=== PATIENT | female | born 2000 | race African-American/Black ===

== ENCOUNTER 2022-01-11 19:01 | Emergency (ER) | payer OTHER ==
[~2022-01-11] VITALS: Ht 157.5 cm; Wt 63.5 kg
[2022-01-11 20:01] LABS: PLATELET COUNT 230 K/uL (152-353)
[2022-01-11 20:04] LABS: POTASSIUM 3.4 mmol/L (3.6-5.2)
[2022-01-11 20:20] LABS: PARTIAL THROMBOPLASTIN TIME 26.5 SECONDS (24.5-33.6)
[2022-01-11 21:35] VITALS: BP 124/70; TEMP 98.1
== END 2022-01-11 21:35 | disposition home or self-care (01) ==
LOC: ED 19:01
PROVIDERS: Emergency Medicine
DX: O20.9 Hemorrhage in early pregnancy, unspecified (principal); Z3A.01 Less than 8 weeks gestation of pregnancy; R30.0 Dysuria
CPT/HCPCS: 36415; 80048; 81002; 81015; 81025; 85027; 85610; 85730; 99284